=== PATIENT | male | born 1970 | race Caucasian/White ===

== ENCOUNTER → 2018-04-17 14:58 | Outpatient (CLI) | payer MEDICARE, MEDICAID, SELFPAY ==
--- NOTE | 2018-04-17 14:56 | DI.REPORT_ITS ---
SYMPTOM/DIAGNOSIS: BURSITIS LEFT ELBOW LEFT ELBOW: When compared with the prior study of 03/16 again noted is the plate and screw fixation device in place, astride a proximal ulnar fracture. The fracture remains in anatomic alignment. There is no joint effusion.
== END ==
PROVIDERS: PCP Family Medicine; Visit Provider Student in an Organized Health Care Education/Training Program
DX: M70.22 Olecranon bursitis, left elbow (principal); Z96.7 Presence of other bone and tendon implants; M24.522 Contracture, left elbow; M25.522 Pain in left elbow; G89.29 Other chronic pain
CPT/HCPCS: 73080; 99213

== ENCOUNTER → 2018-04-24 01:02 | Outpatient (CLI) | payer MEDICARE, MEDICAID, SELFPAY ==
--- NOTE | 2018-04-24 15:05 | DI.RPTCT_ITS ---
SYMPTOM/DIAGNOSIS: LT ELBOW CONTRACTURE M24.[address]: 04/24 CT examination of the elbow was performed utilizing multi-slice acquisition and multiplanar reconstruction. The previous described olecranon fracture is again noted with plate and screw fixation in place. The fracture appears healed. There are a couple of small bony fragments adjacent to the lateral aspect of the proximal ulna the largest of which measures about 6 mm in diameter and an additional small bony fragment measuring about 5 mm in greatest diameter is noted adjacent to the proximal aspect of the ulna adjacent to the coronoid fossa. No other significant bony abnormality is seen apart from mild hypertrophic spurring of the distal humerus. The cartilaginous joint spaces appear fairly well maintained.
== END ==
PROVIDERS: PCP Family Medicine; Visit Provider Student in an Organized Health Care Education/Training Program
DX: M24.522 Contracture, left elbow (principal); Z47.89 Encounter for other orthopedic aftercare; M25.822 Other specified joint disorders, left elbow
CPT/HCPCS: 73200

== ENCOUNTER → 2019-10-06 13:58 | Outpatient (BNVA) | payer MEDICARE, MEDICAID, SELFPAY | PROVIDERS: PCP Family Medicine; Referring Provider Family Medicine; Visit Provider Student in an Organized Health Care Education/Training Program | DX: G56.22 Lesion of ulnar nerve, left upper limb (principal) | CPT/HCPCS: 99214 ==

== ENCOUNTER 2019-10-24 10:50 | Outpatient (CLI) | payer MEDICARE, MEDICAID, SELFPAY | END 2019-10-24 11:10 | PROVIDERS: PCP Family Medicine; Visit Provider Student in an Organized Health Care Education/Training Program | DX: Z01.818 Encounter for other preprocedural examination (principal); G56.22 Lesion of ulnar nerve, left upper limb ==

== ENCOUNTER 2019-10-29 09:36 | Day surgery (SDC) | payer MEDICARE, MEDICAID, SELFPAY ==
[2019-10-24 11:03] VITALS: BP 160/95; PULSE 75; RESP 16; TEMP 37.5; O2SAT 98
--- NOTE | 2019-10-29 07:36 | W.PM.DSUDISC ---
Discharge Plan Disposition Patient Disposition: HOME Condition: Good Discharge Details Reason For Visit: left cubital tunnel syndrome Attending Provider: Everton Julio Primary Care Provider: Asa Quiñonez Home Meds and New Rx's Prescriptions: New acetaminophen 500 mg tablet 500 mg PO Q6H PRN (Reason: pain) Qty: 60 RF: 2 ibuprofen 600 mg tablet 600 mg PO TID PRN (Reason: pain) Qty: 60 RF: 2 oxycodone 5 mg tablet 5 mg PO Q4H PRN (Reason: severe post-operative pain) Qty: 18 RF: 0 No Action nicotine (polacrilex) 4 mg gum 4 mg BC Q2H Qty: 100 RF: 3 morphine 30 mg tablet extended release 30 mg PO Q8H MDD 90 mg Qty: 78 RF: 0 oxycodone 10 mg tablet 10 mg PO BID MDD 20 mg PRN (Reason: pain) Qty: 46 RF: 0 multivitamin 1 EACH tablet 1 tab PO DAILY RF: 0 ascorbic acid (vitamin C) [Vitamin C] 500 MG tablet 1 tab PO DAILY RF: 0 omega-3 fatty acids-fish oil 1 EACH capsule 1 cap PO DAILY RF: 0 temazepam [Restoril] 30 MG capsule 1 cap PO HS Qty: 60 RF: 1 Left Elbow Brace Qty: 1 RF: 0 gabapentin 600 MG tablet 600 mg PO TID Qty: 90 RF: 3 sumatriptan succinate [Imitrex] 50 MG tablet 1 tab PO DIRECTED Qty: 9 RF: 5 Narcan 4 MG spray,non-aerosol 4 mg NS PRN Qty: 2 RF: 0 alprazolam 2 MG tablet 1 tab PO HS PRNQty: 30 RF: 0 trazodone 50 MG tablet 1 tab PO HS RF: 0 Discharge Instructions Additional Instructions: Activity: You should stay in the sling for the first 2 weeks. You may come out of the sling for gentle motion and hygiene but should largely remain in the sling to allow the incision site to heal. Gentle motion of the elbow, hand, wrist, and fingers is okay and encouraged after the first few days, but no repetitive activities nor heavy lifting. You may apply ice. Medications: - You should take Tylenol and Ibuprofen around the clock. - You have been prescribed Hydrocodone for breakthrough pain. Dressings: - The initial surgical dressing should stay in place for 3 days. It may then be removed and kept clean and dry. You should cover with a light gauze dressing. - You may shower after 3 days and get the wound wet. Follow-up: 10-14 days Referrals: Everton Julio MD [ [facility] STAFF PHYSICIAN] - Equipment/Supplies: Sling Activity:: Elevate Remove Dressings/Wound Care:: 72 hours Shower/Bathe:: 72 hours Diet:: As Tolerated Discharge Orders Discharge Orders: Discharge Order (Routine); Ordered 10/29/19 Ordered By: Heidi Cr DS: Diagnosis Discharge Diagnosis (1) Ulnar neuropathy at elbow of left upper extremity: Status: Acute
[2019-10-29 09:51] VITALS: BP 125/80; PULSE 86; RESP 18; TEMP 36; O2SAT 99
[2019-10-29] MEDS: Lactated Ringers 1,000 ML 80 ML IV (10:17)
[2019-10-29] MEDS: ceFAZolin 2 GM/50 ML BAG IVPB (10:50)
[2019-10-29] MEDS: Bupivacaine LIPOSOME/PF 133 MG/10 ML VIAL IJ (11:11)
[2019-10-29] MEDS: Bupivacaine 0.25% Pres-Free 30 ML VIAL (11:11)
[2019-10-29 12:20] VITALS: BP 90/67; PULSE 67; RESP 12; TEMP 36.8; O2SAT 98
[2019-10-29 12:25] VITALS: BP 116/77; PULSE 63; RESP 12; TEMP 36.8; O2SAT 98
[2019-10-29 12:30] VITALS: BP 113/77; PULSE 72; RESP 11; TEMP 36.8; O2SAT 97
[2019-10-29 12:44] VITALS: BP 120/78; PULSE 62; RESP 11; TEMP 36.7; O2SAT 98
[2019-10-29] MEDS: HYDROcodone 5/Acetaminophen 325 TAB PO (13:03)
[2019-10-29 13:27] VITALS: BP 112/71; PULSE 62; RESP 16; TEMP 36.6; O2SAT 98
--- NOTE | 2019-10-30 06:46 | W.PM.OP ---
Date of service: 10/29/19 Time of Service: 13:50 Operative Note Operative Note DATE OF PROCEDURE: 05/13/19 POST-OP DIAGNOSIS: same PROCEDURE: Left Cubital Tunnel Decompression SURGEON: Everton Julio PRODUCT MARKETING PROGRAMS MANAGER: Heidi Cr ANESTHESIA: GETA ESTIMATED BLOOD LOSS: 0 PATHOLOGY: none sent TOURNIQUET TIME: 14 COMPLICATIONS: None Patient was transported to: PACU Patient's condition: stable Indications: [NAME] is a [AGE and sex] who has had symptoms of cubital tunnel syndrome. Nonoperative treatment options had been trialed. Nerve conduction studies identified the cubital tunnel as the point of compression. Given failure of nonoperative treatments and persistent symptoms, I offered operative intervention. I reviewed the technical details of a cubital tunnel decompression with possible anterior subcutaneous transposition. I reviewed the risk of the procedure to include bleeding, infection, pain, stiffness, tendon instability, damage to the superficial radial nerve, and complete release. Despite these risks, the patient elected to proceed. Findings: There was a tightened cubital tunnel. [OTHER] The ulnar nerve was release from the first motor branch distally through the [place] proximally. Procedure Description: [Patient Name] was greeted in the preoperative holding area. Name and surgical site were confirmed. The history and physical was completed. The consent was reviewed the patient and signed. [Name] was taken back to the operating room. The patient was placed in the supine positioned and a general anesthetic was administered. The [side] was then prepped with ChloraPrep and draped in a standard fashion after a nonsterile tourniquet was placed high up into the axilla of the arm. Prophylactic antibiotics in the form of [cefazolin] were administered. A timeout was performed for safe surgery. The surgical site was drawn on the skin as was the lateral epicondyle borders. The planned surgical field was anesthetized with 0.25% bupivacaine with epinephrine. The limb was exsanguinated and the tourniquet was inflated where it stayed for [10 minutes]. A 6 cm incision was made curvilinearly around the medial elbow. The skin was incised only. The deep tissue subcutaneous fat was dissected with a tenotomy scissors trying to protect any branches of the medial antebrachial cutaneous nerve. Any branches that were identified were retracted out of the way. The ulnar nerve was palpated and identified. A small window into the cubital tunnel was created and the nerve is able to be palpated with the [place]. A Metzenbaum scissor was then used to open up the she is starting with the Borges's ligament. I then worked distal over the ulnar nerve releasing any constraints against the nerve all the way to the fascia of the FCU muscle belly. This muscle belly was bluntly all the way down to the first motor branch of the ulnar nerve. Likewise starting there at the lateral condyle proceeded working proximally to release any constraints over the ulnar nerve. This was taken all the way to the arcade of [place]. The medial intermuscular septum was also palpated in any sharp edges against the ulnar nerve were resected. After fully releasing the nerve it was inspected visually. I was also able to palpate the nerve fully and reach one finger up into the proximal distal aspects to make sure there is no constraints against the nerve. A freer elevator was also used to slide easily against the ulnar nerve without any points of constriction. The arm was then taken through range of motion. The ulnar nerve [did not] sublux/dislocate out of its groove behind the lateral epicondyle. [Therefore, no transposition was performed.] [Transposition] The tourniquet was then deflated. Any areas of bleeding were cauterized with bipolar electrocautery. The wound was thoroughly irrigated. The deep tissue was closed with a 3-0 Vicryl. The skin was closed with a 4-0 nylon. The wound was dressed with Xeroform, 4 x 4's, ABD, Kerlix and an Darwin wrap. She was placed into a sling. The patient was transferred back to same day surgery area in stable condition.
--- NOTE | 2019-10-30 06:51 | ROE_ITS ---
Date of service: 10/29/19 Time of Service: 13:51 Operative Note Operative Note DATE OF PROCEDURE: 10/29/19 PRE-OP DIAGNOSIS: Left Ulnar Nerve Compression at Elbow with surrounding hyperostosis POST-OP DIAGNOSIS: same PROCEDURE: Left Cubital Tunnel Decompression with Anterior Subcutaneous Transposition and Ostectomy SURGEON: Everton Julio DRILLING MACHINE RUNNER: Heidi Cr ANESTHESIA: GETA ESTIMATED BLOOD LOSS: 0 PATHOLOGY: none sent TOURNIQUET TIME: 55 COMPLICATIONS: None Patient was transported to: PACU Patient's condition: stable Indications: Boyd is a 49yo male who has had symptoms of cubital tunnel syndrome. He has a history of an olecranon fracture of that side which was treated surgically. The fracture healed uneventfully but Boyd had poor post-operative compliance and has a notable flexion contracture. CT scan did demonstrate bony fragments within and around the cubital tunnel. Nonoperative treatment options h ad been trialed. Given failure of nonoperative treatments and persistent symptoms, I offered operative intervention. I reviewed the technical details of a cubital tunnel decompression with possible anterior subcutaneous transposition. I reviewed the risk of the procedure to include bleeding, infection, pain, stiffness, tendon instability, damage to the superficial radial nerve, and complete release. Despite these risks, the patient elected to proceed. Findings: There was a tightened cubital tunnel. Large bony fragments were deep to the ulnar nerve and pushed the nerve medial and superficial against Borges's ligament. The ulnar nerve was release from the first motor branch distally through the [place] proximally and then transposed anteriorly. Bony prominences of the medial epicondyle and the medial ulna and loose pieces in between were resected. Procedure Description: Boyd was greeted in the preoperative holding area. Name and surgical site were confirmed. The history and physical was completed. The consent was reviewed the patient and signed. Boyd was taken back to the operating room. The patient was placed in the supine positioned and a general anesthetic was administered. The left was then prepped with ChloraPrep and draped in a standard fashion after a nonsterile tourniquet was placed high up into the axilla of the arm. Prophylactic antibiotics in the form of cefazolin were administered. A timeout was performed for safe surgery. The surgical site was drawn on the skin as was the lateral epicondyle borders. This incision was kept 6cm minimum from the previous lateral-posterior incision. The planned surgical field was preliminarily anesthetized with 0.5% bupivacaine. The limb was exsanguinated and the tourniquet was inflated where it stayed for 55 minutes. A 8 cm incision was made curvilinearly around the medial elbow. The skin was incised only. The deep tissue and subcutaneous fat was dissected with a tenotomy scissors trying to protect any branches of the medial antebrachial cutaneous nerve. Any branches that were identified were retracted out of the way. The ulnar nerve was palpated and identified. It was covered in a thick sheath, much more than usual,extending to the triceps. The nerve also appeared more superficial than usual. Starting proximally, a small window into the cubital tunnel, sheath overlying the nerve, was created and the nerve was able to be palpated with the [employer]. A Metzenbaum scissor was then used to open up the sheath starting with Borges's ligament. I then worked distal over the ulnar nerve releasing any constraints against the nerve all the way to the fascia of the FCU muscle belly. This muscle belly was bluntly all the way down to the first motor branch of the ulnar nerve and the overlying fascia was incised. Likewise starting there at the lateral epicondyle, I proceeded to work proximally to release any constraints over the ulnar nerve. This was taken all the way to the arcade of [place]. The medial intermuscular septum was also palpated and any sharp edges against the ulnar nerve were resected and released. After fully releasing the nerve it was inspected visually. There were many attachments to the nerve, tethering it. I was also able to palpate the nerve fully and reach one finger up into the proximal and distal aspects to make sure there were no constraints against the nerve. Large bony pieces were palpated deep to the nerve. Two appeared loosely attached and there was also some prominence from the ulna and medial epicondyl which where impinging. Therefore, I performed an anterior transposition. A vessel loop was placed around the ulnar nerve and it was freed of any underlying attachments and adhesions. This was taken down the length of the nerve. I was able to easily move it anteriorly and the nerve was palpated for any sharp or abrupt edges and there were none. I then elevated a flap of fascia from the medial epicondylar pronator origin. With the nerve protected anteriorly, this fascia was sewn to the dermis underlying the location of the medial epicondyle with #3-0 Vicryl. This was repeated multiple times with other loose fascia to create a sling to keep the nerve anterior. Once completed the ulnar nerve was inspected to make sure it wasn't tethered or had any points of compression. A [employer] elevator was able to be run against the nerve without resistance. I then used a knife to elevate soft tissue off of the bony pieces interposed between the humerus and ulna. These pieces were then mobilized with a [employer] elevator and resected with a rongeur. Bony prominences from the proximal ulna and the medial humerus were also resected with a rongeur. Range of motion confirmed no notable impingement. The deep tissues along the humerus and ulna as well as the soft tissues in this area were then injected withe a 2:1 mixture of 0.5% Bupivacaine and 10cc of Exparel for long acting pain relief given Boyd's chronic opiod use and history. The wound was thoroughly irrigated. The deep tissue was closed with a 3-0 Vicryl. The skin was closed with a 4-0 nylon. The wound was dressed with Xeroform, 4 x 4's, ABD, Kerlix and an Darwin wrap. The tourniquet was deflated. Boyd was placed into a sling. Boyd was transferred back to the PACU in a stable condition.
== END 2019-10-29 14:00 | disposition home or self-care (01) ==
LOC: SUR 09:36
PROVIDERS: PCP Family Medicine; Visit Provider Student in an Organized Health Care Education/Training Program
PROC: (CPT 25150; principal; 2019-10-29 11:00)
DX: G56.22 Lesion of ulnar nerve, left upper limb (principal); M85.822 Other specified disorders of bone density and structure, left upper arm; M24.522 Contracture, left elbow; S52.022S Displaced fracture of olecranon process without intraarticular extension of left ulna, sequela; X58.XXXS Exposure to other specified factors, sequela
CPT/HCPCS: 25150; 24140; 64718; J0690; J1100; J1885; J2405; L3650

== ENCOUNTER → 2019-11-10 13:09 | Outpatient (BNVA) | payer MEDICARE, SELFPAY | PROVIDERS: PCP Family Medicine; Referring Provider Family Medicine; Visit Provider Student in an Organized Health Care Education/Training Program | DX: Z47.89 Encounter for other orthopedic aftercare (principal); G56.22 Lesion of ulnar nerve, left upper limb ==

== ENCOUNTER 2020-02-20 09:13 | Outpatient (CLI) | payer MEDICARE, SELFPAY ==
[2020-02-21 23:28] LABS: COVID-19 RT-PCR Result NEGATIVE (Negative)
== END 2020-02-20 09:33 ==
PROVIDERS: PCP Family Medicine; Visit Provider Family Medicine
DX: Z03.818 Encounter for observation for suspected exposure to other biological agents ruled out (principal)
CPT/HCPCS: U0003

== ENCOUNTER 2020-04-20 07:29 | Outpatient (CLI) | payer MEDICARE, SELFPAY ==
[2020-04-22 05:36] LABS: SARS-CoV-2 RNA Undetected (Undetected); SARS-CoV-2 Specimen Source Nasopharynx
== END 2020-04-20 07:49 ==
PROVIDERS: PCP Family Medicine; Visit Provider Family Medicine
DX: Z11.59 Encounter for screening for other viral diseases (principal)
CPT/HCPCS: U0003

== ENCOUNTER 2020-07-12 13:02 | Outpatient (REF) | payer MEDICARE, SELFPAY ==
[2020-07-12 14:15] LABS: Hemoglobin A1C 5.9 % (<5.7)
[2020-07-12 14:36] LABS: Anion Gap 9.5 mmol/L (3-11); BUN 11 mg/dL (7-18); CO2 27.5 mmol/L (21.0-32.0); CREATININE 0.92 mg/dL (0.70-1.30); Calcium 9.5 mg/dL (8.5-10.1); Calculated LDL 190 mg/dL (<100); Chloride 101 mmol/L (98-107); Cholesterol 268 mg/dL (<200); Glucose 166 mg/dL (74-106); HDL Cholesterol 45 mg/dL (40-60); Potassium 4.5 mmol/L (3.5-5.1); Sodium 138 mmol/L (136-145); TSH 5.01 uIU/mL (0.36-3.74); Triglyceride 167 mg/dL (<150)
[2020-07-12 16:07] LABS: FREE T4 0.86 ng/dL (0.76-1.46)
[2020-07-20 17:25] LABS: Thyroglobulin Antibody <1.8 IU/mL; Thyroperoxidase Antibody 382.2 IU/mL (<9.0)
== END 2020-07-12 13:22 ==
LOC: LBN 13:02
PROVIDERS: PCP Nurse Practitioner Family; Visit Provider Nurse Practitioner Family
DX: R73.01 Impaired fasting glucose (principal); E05.90 Thyrotoxicosis, unspecified without thyrotoxic crisis or storm
CPT/HCPCS: 80048; 80061; 86376; 83036; 84439; 84443

== ENCOUNTER 2020-08-20 21:05 | Outpatient (REF) | payer MEDICARE, MEDICAID, SELFPAY ==
[2020-08-20 20:47] LABS: Bilirubin Negative (Negative); Blood Trace-intact (Negative); Clarity Cloudy (Clear); Glucose Negative (Negative); Ketones 15 mg/dL (Negative); Leukocyte Esterase Negative (Negative); Nitrite Negative (Negative); Specific Gravity 1.025 (1.005-1.025); Urobilinogen 0.2 EU/dL (Up TO 0.2); pH 6.5 (5-8)
[2020-08-20 21:22] LABS: Bacteria Negative HPF (Negative); C & S Indicated? No; Crystals Negative HPF (Negative); Epithelial Cells Negative HPF (Negative); Mucus Heavy (Negative); Other Cells Moderate Spermatozoa (Negative); RBC 0-2 HPF (0-2); WBC Negative HPF (0-5)
== END 2020-08-20 21:25 ==
LOC: LBN 21:05
PROVIDERS: PCP Nurse Practitioner Family; Visit Provider Emergency Medicine
DX: R10.9 Unspecified abdominal pain (principal); R30.0 Dysuria
CPT/HCPCS: 81003; 81015

== ENCOUNTER 2020-11-18 21:03 | Outpatient (REF) | payer MEDICARE, SELFPAY ==
[2020-11-18 22:01] LABS: Calculated LDL 118 mg/dL (<100); Cholesterol 189 mg/dL (<200); HDL Cholesterol 46 mg/dL (40-60); TSH 3.67 uIU/mL (0.36-3.74); Triglyceride 128 mg/dL (<150)
[2020-11-18 22:43] LABS: FREE T4 0.87 ng/dL (0.76-1.46)
== END 2020-11-18 21:04 | disposition home or self-care (01) ==
LOC: LBN 21:03
PROVIDERS: PCP Nurse Practitioner Family; Visit Provider Nurse Practitioner Family
DX: E78.2 Mixed hyperlipidemia (principal)
CPT/HCPCS: 80061; 84439; 84443

== ENCOUNTER 2021-02-01 18:15 | Emergency (ER) | payer MEDICARE, SELFPAY ==
[2021-02-01 18:24] VITALS: BP 145/85; PULSE 74; RESP 15; TEMP 37.1; O2SAT 98
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
[2021-02-01 20:44] VITALS: BP 132/75; PULSE 89; RESP 16; TEMP 36.7; O2SAT 98
== END 2021-02-01 20:40 | disposition home or self-care (01) ==
PROVIDERS: Emergency Provider Emergency Medicine; PCP Nurse Practitioner Family
DX: S00.81XA Abrasion of other part of head, initial encounter (principal); V48.5XXA Car driver injured in noncollision transport accident in traffic accident, initial encounter
CPT/HCPCS: 99284; 70450; 71046; 72125; 99283

== ENCOUNTER 2021-03-04 19:55 | Emergency (ER) | payer OTHER, SELFPAY ==
[2021-03-04] VITALS (16 sets, daily range): BP systolic 88–118; BP diastolic 62–80; PULSE 56–78; RESP 7–16; TEMP 36.1; O2SAT 92–99
--- NOTE | 2021-03-04 20:00 | RT.EKG_ITS ---
APPROVED REPORT Exam: Resting ECG Reason for Exam: possible overdose Patient Location: E HR:64 bpm ECG Measurements Heart Rate 64 AXIS MD 151 P 42 QRSd 94 QRS 63 QT 396 T 264 QTc 408 Conclusion Sinus rhythm...normal P axis, V-rate 60- 99 Nonspecific T abnormalities, lateral leads...T <-0.10mV, I aVL V5 V6
--- NOTE | 2021-03-04 20:14 | W.ED.GENAD ---
Discharge Plan Disposition Patient Disposition: HOME Condition: Stable Discharge Details Clinical Impression: Altered mental status Primary Care Provider: Laura Dotson ED Provider: Shaan Allen Home Meds and New Rx's Prescriptions: Continued sumatriptan succinate [Imitrex] 50 mg tablet 50 mg PO DIRECTED Qty: 9 RF: 5 simvastatin 10 mg tablet 10 mg PO DAILY Qty: 90 RF: 4 nicotine (polacrilex) 4 mg gum 4 mg buccal Q2H MDD 24 PRN (Reason: nicotine cravings) Qty: 100 RF: 4 oxycodone 5 mg tablet 5 mg PO DAILY MDD 1 tabet Qty: 30 RF: 0 multivitamin 1 EACH tablet 1 tab PO DAILY RF: 0 ascorbic acid (vitamin C) [Vitamin C] 500 MG tablet 1 tab PO DAILY RF: 0 omega-3 fatty acids-fish oil 1 EACH capsule 1 cap PO DAILY RF: 0 Narcan 4 MG spray,non-aerosol 4 mg NS PRN Qty: 2 RF: 0 gabapentin 600 mg tablet 600 mg PO TID Qty: 270 RF: 4 morphine 30 mg tablet extended release 30 mg PO Q8H MDD 90 mg PRN (Reason: Chronic pain) Qty: 84 RF: 0 temazepam [Restoril] 30 mg capsule 30 mg PO HS Qty: 90 RF: 0 ibuprofen 600 mg tablet 600 mg PO TID PRN (Reason: pain) Qty: 60 RF: 2 Discontinued trazodone 150 mg tablet 150 mg PO QHS Qty: 90 RF: 4 alprazolam 2 mg tablet 2 mg PO QHS PRN (Reason: anxiety) Qty: 90 RF: 0 Discharge Instructions Additional Instructions: your symptoms were likely due to drug use and the multiple medications you take. do no take your nightly trazadone or alprazolam refrain from using marijuana or other drugs follow up with your primary care provider within 1 week if you feel more ill, have severe pain or difficulty breathing return to the emergency department Medical Decision Making 50 yo male with hx of hld, bipolar, ptsd, insomnia, who was brought in by his roommate for confusion. Roommate states unknown last known well time but tonight patient has been not answering questions appropriately and has slurred speech so was brought here. Pt is walking with a shufled gait. HE was able to sit on the stretcher and will intermittently sway left to right. He at most will answer with one word answers but is awake. His pupils are pinpoint but is chronically on opiods. He has no signs of trauma and no focal deficits speech intermittently slurred when saying certain words. I suspect possible side effects of the drugs she is on vs illicit drug use. Will evaluate for possible electrolyte abnormalities and tox labs and though unlikely cva or ich will obtain ct head. imaging and labs unremarkable, he is now more lucid, caox4.He denies illicit drug use today other than marijuana and denies taking more of his prescribed meds, no si/hi and clear speech. Suspect multidrug use and marijuana use for his earlier altered mental status and has now cleared. He is ambulating and requesting d/c. I advised to stop using marijuana and discuss decreasing his opiates and hold his nightly alprazolamm and trazadone Differential Diagnosis Differential Diagnosis: drug use, electrolyte abnormality, cva Imaging Data Radiologic Study: Attestation: I personally reviewed and interpreted this imaging study as follows: Imaging: X-Ray Radiologist's impression: no acute findings Radiologic Study #2: Attestation: I personally reviewed and interpreted this imaging study as follows: Imaging: CT Scan Radiologist's impression: no acute findings Lab Data Lab results reviewed: Yes I reviewed the patient's lab results. ECG Data Attestation: I personally reviewed and interpreted this ECG (s) as follows: Prior ECG tracings: not available for review Interpretation: sinus rhythm, pr 151, qtc 408 HPI General Mode of arrival: ambulatory. Date/Time Provider Initiated Documentation: 03/04/21 19:56. Limitations to Documentation: altered mental status. Information obtained by: family (roommate). History of Present Illness 50 year old M presents to the emergency department with the chief complaint of altered mental status, described as moderate, Patient started experiencing this unknown and it has been constant. No relieving factors improve symptom(s), No exacerbating factors reported . Patient did receive the following treatments prior to arrival, none Related Data Home Medications Medication Instructions Recorded Confirmed ascorbic acid (vitamin C) [Vitamin 1 tab PO DAILY 12/16/12 02/17/21 C] multivitamin 1 tab PO DAILY 12/16/12 02/17/21 omega-3 fatty acids-fish oil 1 cap PO DAILY 12/16/12 02/17/21 Narcan 4 mg NS PRN #2 spray 05/31/17 02/17/21 ibuprofen 600 mg PO TID PRN #60 tab 10/29/19 02/17/21 sumatriptan succinate 50 mg tablet 50 mg PO DIRECTED #9 tab 11/28/19 02/17/21 simvastatin 10 mg tablet 10 mg PO DAILY #90 tab 08/30/20 02/17/21 nicotine (polacrilex) 4 mg gum 4 mg BUCCAL Q2H PRN #100 ea MDD 24 11/18/20 02/01/21 gabapentin 600 mg tablet 600 mg PO TID #270 tab-cap 01/28/21 02/17/21 oxycodone 5 mg tablet 5 mg PO DAILY #30 tab MDD 1 tabet 02/17/21 02/17/21 morphine 30 mg tablet,extended 30 mg PO Q8H PRN #84 tab MDD 90 mg 02/25/21 release temazepam 30 mg capsule 30 mg PO HS #90 cap 02/25/21 Previous Rx's Medication Instructions Recorded Narcan 4 mg NS PRN #2 spray 05/31/17 ibuprofen 600 mg PO TID PRN #60 tab 10/29/19 sumatriptan succinate 50 mg tablet 50 mg PO DIRECTED #9 tab 11/28/19 simvastatin 10 mg tablet 10 mg PO DAILY #90 tab 08/30/20 nicotine (polacrilex) 4 mg gum 4 mg BUCCAL Q2H PRN #100 ea MDD 24 11/18/20 gabapentin 600 mg tablet 600 mg PO TID #270 tab-cap 01/28/21 oxycodone 5 mg tablet 5 mg PO DAILY #30 tab MDD 1 tabet 02/17/21 morphine 30 mg tablet,extended 30 mg PO Q8H PRN #84 tab MDD 90 mg 02/25/21 release temazepam 30 mg capsule 30 mg PO HS #90 cap 02/25/21 Allergies Allergy/AdvReac Type Severity Reaction Status Date / Time Sulfa (Sulfonamide Allergy Intermediate rash Verified 02/17/21 14:54 Antibiotics) trimethoprim Allergy Intermediate rash Verified 02/17/21 14:54 chocolate flavor Allergy Mild PRURITIS Verified 02/17/21 14:54 General Stated Complaint: OD/Poison LAWRENCE: 3 Review of Systems Unobtainable due to mental status FORMERLY [facility], [facility] Medical History Bipolar disorder Chronic pain of right lower extremity Hx of right tibia and fibula fracture 2008 s/p closed reduction, removal of painful screws Cigarette smoker Depressive disorder Graves' disease Resolved with methimazole therapy Insomnia Migraine headache with aura PTSD (post-traumatic stress disorder) Subclinical hypothyroidism Surgical History History of surgery on extremity (03/29/09) Closed reduction of right tibia and fibula 08/24/09 right tibia screw removed 01/05/10 right fibular screw removed S/P cubital tunnel release (10/29/19) Left Cubital Tunnel Decompression with Anterior Subcutaneous Transposition and Ostectomy S/P ORIF (open reduction internal fixation) fracture (01/06/16) Left Olecranon ORIF Family History Mother Stroke Father Stroke Sister Hypothyroidism Sister Hypothyroidism Maternal Grandfather No problems noted. Maternal Grandmother Diabetes Paternal Grandfather No problems noted. Paternal Grandmother No problems noted. Social History Smoking/Tobacco Use Status: Current every day Tobacco Type: cigarettes Smoking packs per day: 1.5 Smoking cigarettes per day: 30.0 Years smoked: 36 Smoking pack-years: 54.00 Tobacco: How many years used: 36 Smoking risk assessment performed?: Yes Alcohol Intake: never Drug use: Occasionally Substance use type: marijuana and unknown Household members: friend(s) Housing: house Number of Children: 0 current occupation: Disabled, Former [employer] Current gender identity: male What type of physical activity do you participate in: independent ambulation and regular exercise Do you feel safe at home: Yes Exam Const General: no acute distress Orientation: alert HENMT Head: normal to inspection Ears: external ears normal General nose exam: external nose normal Mouth: moist mucous membranes Eyes Pupils: pinpoint Neck Neck: normal visual inspection Resp Effort & Inspection: normal respiratory effort and able to speak in complete sentences Cardio Rate: regular rate Skin General skin exam: no rashes or lesions noted Neuro General: patient alert Extrem General: normal to inspection Course Vital Signs Vital signs: Vital Signs Temperature 36.1 C L 03/04/21 20:02 Pulse 77 03/04/21 20:02 Respiratory Rate 14 03/04/21 20:02 Blood Pressure 118/80 03/04/21 20:02 Pulse Oximetry 94 03/04/21 20:02 Temperature 36.1 C L 03/04/21 20:02 Pulse 77 03/04/21 20:02 Respiratory Rate 14 03/04/21 20:02 Blood Pressure 118/80 03/04/21 20:02 Pulse Oximetry 94 03/04/21 20:02 Oxygen Delivery Method Room Air 03/04/21 20:02 Oxygen Flow Rate 0 03/04/21 20:02 Pain Level 0 03/04/21 20:02
[2021-03-04 20:27] LABS: Abs Immature Grans 0.04 10^3/uL (0.0-0.06); Absolute Basophil Count 0.07 10^3/uL (0.0-0.2); Absolute Lymphocyte Count 3.42 10^3/uL (1.2-3.4); Basophils % 0.6; Eosinophils % 0.9; HCT 41.9 % (40.0-50.0); HGB 13.6 g/dL (13.5-17.5); Immature Grans % 0.3; Lymphocytes % 29.5; MCH 30.7 pg (27.0-33.0); MCHC 32.5 % (32.0-36.0); MCV 94.6 fL (80-95); MPV 9.1 fL (8.0-11.0); Monocytes % 7.8; Neutrophils % 60.9; Nucleated RBC 0 %; Platelet Count 339 10^3/uL (130-400); RBC 4.43 10^6/uL (4.36-5.78); RDW 13.2 % (11.8-14.1); RDW-SD 45.8 fL
[2021-03-04 20:28] LABS: Absolute Neutrophil Count 7.06 10^3/uL (1.2-6.7)
--- NOTE | 2021-03-04 20:34 | DI.CT_ITS ---
Exam(s) CT HEAD WO EXAM: CT HEAD WO CLINICAL HISTORY: altered mental status. TECHNIQUE: Imaging Protocol: Axial computed tomography images with coronal and sagittal reformatted images were created and reviewed COMPARISON: CT CT HEAD CERVICAL SPINE WO from 02/01/2021 FINDINGS: There are no skull fractures nor fluid in the visualized paranasal sinuses. There is no evidence of intracranial hemorrhage, mass effect, or shift of midline structures. There are no extra-axial fluid collections. The ventricles are not enlarged or shifted and there is no blo od within the ventricular system nor within the basal cisterns. IMPRESSION: No acute intracranial findings on this noninfused CT scan of the brain. No significant change compar ed to the prior study of 02/01/2021. RADIATION DOSE DELIVERED: 947.4mGy.cm Total DLP DATA REPOSITORY: All CT scans at this facility are submitted to the National Radiology Data Registry (NRDR) Dose Index Registry (DIR) with the [employer] ([employer]). RADIATION OPTIMIZATION: All CT scans at this facility use at least one of these dose optimization te chniques: automated exposure control; mA and/or kV adjustment per patient size (includes targeted exa ms where dose is matched to clinical indication); or iterative reconstruction.
--- NOTE | 2021-03-04 20:39 | DI.RAD_ITS ---
Exam(s) XR CHEST 2V PA LATERAL EXAM: XR CHEST 2V PA LATERAL CLINICAL HISTORY: altered mental status, ?aspiration. TECHNIQUE: 2D digital imaging was performed. COMPARISON: CR,XR XR CHEST 2V PA LATERAL from 02/01/2021 FINDINGS: Heart size normal mediastinum is not widened. Slight elevation left hemidiaphragm. Right lung is clear. There is subsegmental platelike atelectasis in the lower left lung superior priti gular segment, this being the side of the a slightly elevated hemidiaphragm. No pleural effusions. No pulmonary edema. No pneumothorax. IMPRESSION: Mildly elevated left hemidiaphragm. Subsegmental platelike atelectasis in the lower of the left lung field. DATA REPOSITORY: RADIATION DOSE DELIVERED:
--- NOTE | 2021-03-04 20:48 | DI.VRAD_ITS ---
PROCEDURE INFORMATION: Exam: CT Head Without Contrast Exam date and time: 03/04/2021 8:07 PM Age: 50 years old Clinical indication: Altered mental status/memory loss; Confusion or disorientation; Patient HX: Latered mental status. TECHNIQUE: Imaging protocol: Computed tomography of the head without contrast. Radiation optimization: All CT scans at this facility use at least one of these dose optimization techniques: automated exposure control; mA and/or kV adjustment per patient size (includes targeted exams where dose is matched to clinical indication); or iterative reconstruction. Other technique: STROKE PROTOCOL was implemented. COMPARISON: CT HEAD CERVICAL SPINE WO 02/01/2021 6:51 PM FINDINGS: Brain: Normal. Unremarkable white matter. No hemorrhage. No mass effect. Cerebral ventricles: No ventriculomegaly. Paranasal sinuses: Visualized sinuses are unremarkable. No fluid levels. Mastoid air cells: Visualized mastoid air cells are well aerated. Bones/joints: Unremarkable. No acute fracture. Soft tissues: Unremarkable. IMPRESSION: No evidence for acute intracranial abnormality. ASSESSMENT: ASPECTS ([place] Stroke Program Early CT Score) is 10. Dictated and Authenticated by: Ayush Grady MD. Ordering:MALLORY Garduno MD
--- NOTE | 2021-03-04 20:48 | DI.VRAD_ITS ---
PROCEDURE INFORMATION: Exam: XR Chest Exam date and time: 03/04/2021 8:24 PM Age: 50 years old Clinical indication: Cough TECHNIQUE: Imaging protocol: XR of the chest. Views: 2 views. COMPARISON: CR XR CHEST 2V PA LATERAL 02/01/2021 7:06 PM FINDINGS: Lungs: No mass. No consolidation. Pleural spaces: Unremarkable. No pleural effusion. No pneumothorax. Heart/Mediastinum: Unremarkable cardiomediastinal silhouette. No cardiomegaly. Bones/joints: Unremarkable. IMPRESSION: No evidence for acute cardiopulmonary disease. Dictated and Authenticated by: Ayush Grady MD. Ordering:MALLORY Garduno MD
[2021-03-04 21:03] LABS: ALT 31 U/L (16-63); AST 40 U/L (15-37); Albumin 4.2 g/dL (3.4-5.0); Alkaline Phosphatase 71 U/L (46-116); BUN 17 mg/dL (7-18); Bilirubin, Total 0.8 mg/dL (0.2-1.0); Calcium 9.2 mg/dL (8.5-10.1); Chloride 103 mmol/L (98-107); Creatine Kinase 596 U/L (39-308); Glucose 114 mg/dL (74-106); Magnesium 2.3 mg/dL (1.8-2.4); Potassium 3.3 mmol/L (3.5-5.1); Sodium 143 mmol/L (136-145); TSH (W/Ref FT4) 11.54 uIU/mL (0.36-3.74); Total Protein 8.4 g/dL (6.4-8.2)
[2021-03-04 21:10] LABS: Anion Gap 15.4 mmol/L (3-11); CO2 24.6 mmol/L (21.0-32.0)
[2021-03-04 21:21] LABS: ETHANOL BLOOD < 3.0 mg/dL (<3)
[2021-03-04 21:46] LABS: FREE T4 1.14 ng/dL (0.76-1.46)
[2021-03-04 21:47] LABS: Salicylate 3.1 mg/dL (<2.8)
[2021-03-04 21:49] LABS: Acetaminophen < 2 ug/mL (10-30)
== END 2021-03-04 22:20 | disposition home or self-care (01) ==
PROVIDERS: Emergency Provider Emergency Medicine; PCP Nurse Practitioner Family
DX: R41.82 Altered mental status, unspecified (principal)
CPT/HCPCS: 36415; 80053; 80307; 82550; 93005; 99284; 70450; 71046; 80320; 80329; 81003; 83735; 84439; 84443; 85025; 93010; 99283

== ENCOUNTER 2021-08-11 03:10 | Outpatient (CLI) | payer OTHER, SELFPAY ==
--- NOTE | 2021-08-11 15:30 | RT.EKG_ITS ---
APPROVED REPORT Exam: Resting ECG Reason for Exam: HIGH RISK MEDICATION Patient Location: O HR:56 bpm ECG Measurements Heart Rate 56 AXIS TN 169 P 55 QRSd 89 QRS 77 QT 434 T 24 QTc 420 Conclusion Sinus bradycardia...rate< 60 Normal Electrocardiogram
== END 2021-08-11 03:11 | disposition home or self-care (01) ==
LOC: RT 03:10
PROVIDERS: PCP Nurse Practitioner Family; Visit Provider Family Medicine
DX: Z79.899 Other long term (current) drug therapy (principal)
CPT/HCPCS: 93005; 93010

== ENCOUNTER 2023-01-31 02:11 | Outpatient (CLI) | payer OTHER, SELFPAY ==
--- NOTE | 2023-01-31 07:45 | DI.CTLCSR_ITS ---
Exam(s) CT CHEST LUNG CANCER SCREEN EXAM: CT CHEST LUNG CANCER SCREEN CLINICAL HISTORY: Screening for lung cancer,current smoker,f17.210. TECHNIQUE: Imaging Protocol: Low Dose Technique CONTRAST MATERIAL: None COMPARISON: CR,XR XR CHEST 2V PA LATERAL from 03/04/2021 FINDINGS: CHEST: LUNGS: There are no ominous pulmonary nodules. There are no confluent infiltrates. No pleural effusi ons. MEDIASTINUM: There is no obvious hilar nor mediastinal adenopathy. CARDIAC: Heart size is normal. There is no pericardial effusion.Caliber of the thoracic aorta is wit hin normal limits. OTHER: OSSEOUS: No significant osseous lesions.. IMPRESSION: 1. No significant pulmonary nodules. 2. No infiltrates nor pleural effusions nor intrathoracic 3. Lung RADS Cat 1 - Negative: No nodules and definitely benign nodules Lung-RADS 1.0 CATEGORIES: Category 0 - Prior chest CT exam(s) being located for comparison. Category 1 - Annual screening in 12 months. No nodules or definitely benign nodules. Category 2 - Annual screening in 12 months. Benign appearance. Nodules with low likelihood of becomin g active cancer. Category 3 - 6-month follow-up. Probably benign. Short-term follow-up suggested. Nodules with low lik elihood of becoming active cancer. Category 4A - 3-month follow-up and CT/PET if >8 mm in size. Suspicious finding. Findings which requi re additional testing. Category 4B - Findings which require additional testing and tissue sampling. Category 4X - Category 3 or 4 nodules with additional features or imaging findings that increases the suspicion of malignancy. Modifier S- Potentially clinically significant findings (non lung cancer) RADIATION DOSE DELIVERED: 77.69mGy.cm Total DLP DATA REPOSITORY: All CT scans at this facility are submitted to the National Radiology Data Registry (NRDR) Dose Index Registry (DIR) with the [employer] ([employer]). RADIATION OPTIMIZATION: All CT scans at this facility use at least one of these dose optimization te chniques: automated exposure control; mA and/or kV adjustment per patient size (includes targeted exa ms where dose is matched to clinical indication); or iterative reconstruction.
== END 2023-01-31 02:31 ==
LOC: DI 02:11
PROVIDERS: PCP Nurse Practitioner Family; Visit Provider Nurse Practitioner Family
DX: F17.210 Nicotine dependence, cigarettes, uncomplicated (principal); Z12.2 Encounter for screening for malignant neoplasm of respiratory organs
CPT/HCPCS: 71271

== ENCOUNTER 2023-01-31 16:10 | Outpatient (CLI) | payer OTHER, SELFPAY ==
[2023-01-31 16:35] LABS: Hemoglobin A1C 5.8 % (<5.7)
[2023-01-31 17:23] LABS: Anion Gap 8.8 mmol/L (3-11); BUN 14 mg/dL (7-18); CO2 28.2 mmol/L (21.0-32.0); CREATININE 0.9 mg/dL (0.70-1.30); Calcium 9.3 mg/dL (8.5-10.1); Chloride 101 mmol/L (98-107); Cholesterol 331 mg/dL (<200); Estimated GFR 101.49 (mL/min/1.73m2); Glucose 99 mg/dL (74-106); HDL Cholesterol 40 mg/dL (40-60); Potassium 3.5 mmol/L (3.5-5.1); Sodium 138 mmol/L (136-145); TSH (W/Ref FT4) 7.47 uIU/mL (0.36-3.74); Triglyceride 529 mg/dL (<150)
[2023-01-31 17:37] LABS: LDL CHOLESTEROL 194 mg/dL (<100)
[2023-02-01 19:42] LABS: PSA, Screening 0.6 ng/mL (<=3.5)
== END 2023-01-31 16:11 | disposition home or self-care (01) ==
LOC: LBO 16:10
PROVIDERS: PCP Nurse Practitioner Family; Visit Provider Nurse Practitioner Family
DX: Z12.5 Encounter for screening for malignant neoplasm of prostate (principal); E02 Subclinical iodine-deficiency hypothyroidism; R73.03 Prediabetes; Z86.39 Personal history of other endocrine, nutritional and metabolic disease
CPT/HCPCS: 36415; 80048; 80061; 83721; 84153; 83036; 84439; 84443